=== PATIENT | male | born 1985 | race Caucasian/White ===

== ENCOUNTER 2017-03-23 21:31 | Emergency (ER) | payer SELFPAY ==
--- NOTE | 2017-03-23 23:38 | NUR ---
CALLED [facility] FOR TRIAGE; NO ANSWER
== END 2017-03-23 23:39 | disposition left against medical advice (07) ==
LOC: ER 21:31
DX: Z53.21 Procedure and treatment not carried out due to patient leaving prior to being seen by health care provider (principal)